=== PATIENT | male | born 1930 | race Caucasian/White ===

== ENCOUNTER → 2016-08-22 | Outpatient (CLI) | payer MEDICARE, OTHER ==
[2016-08-22 11:35] LABS: Potassium 4.2 mmol/L (3.5-5.1)
[2016-08-22 11:36] LABS: INR 2.5 (<1.1); Partial Thromboplastin Time 29.3 sec (22.0-30.0); Prothrombin Time 24.5 sec (9.0-12.0)
== END | disposition home or self-care (01) ==
LOC: LABPAT 10:45
PROVIDERS: ATTEND Orthopaedic Surgery
DX: Z01.812 Encounter for preprocedural laboratory examination (principal); M16.12 Unilateral primary osteoarthritis, left hip
CPT/HCPCS: 36415; 80051; 85610; 85730; 86850; 86900; 86901; 87070

== ENCOUNTER 2016-09-03 05:56 | Inpatient (IN) | payer MEDICARE, OTHER ==
[2016-08-31 14:13] VITALS: BMI 28.8
--- NOTE | 2016-09-02 14:14 | HP ---
DATE OF ADMISSION: 09/03/2016 Adalid Shah is an 85-year-old patient seen with progressive left hip pain consistent with symptomatic advanced osteoarthritis after having treatment options discussed, he elected to proceed with left total hip arthroplasty. Consent regarding the procedure was obtained. Medical clearance was provided by Dr. Fonseca, preoperative cardiac clearance was provided by Dr. Bell. His past medical history is cardiovascular disease, atrial fibrillation, hypertension. Past surgical history is right total knee arthroplasty, left total knee arthroplasty. Daily medications are: 1. Amiodarone. 2. Atorvastatin. 3. Carvedilol. 4. Potassium chloride. 5. Triamterene. 6. Hydrochlorothiazide. 7. Vitamins. Allergies are none. SOCIAL HISTORY: Patient denies current tobacco use. Physical evaluation of the left hip: His range of motion is severely limited with significant pain. There is diffuse weakness about the hip girdle, positive hip impingement sign. His distal neurovascular exam is intact. Radiographs of the left hip revealed severe osteoarthritis. IMPRESSION: Left hip osteoarthritis. PLAN: Direct anterior approach, left total hip arthroplasty.
[~2016-09-03 05:56] MED LIST: ACETAMINOPHEN TAB 500 MG TAB PO ONE; MELOXICAM 7.5 MG TAB PO ONE; TRANEXAMIC ACID 1,000 MG in SODIUM CHLORIDE 0.9% 100 ML IVPB ONE; ceFAZolin 2 GM in SODIUM CHLORIDE 0.9% 100 ML IVPB ONE
[2016-09-03] MEDS ORDERED: LIDOCAINE 1% 20 ML VIAL (10MG/ML) FOR IV START INTRADERMA ONE (06:54)
[2016-09-03] MEDS: LACTATED RINGERS 1,000 ML IV SCH ×2 (06:54→16:25)
[2016-09-03] MEDS ORDERED: DEXAMETHASONE SOD PHOSPHATE 10 MG/ML 1 ML VIAL IV ONE (07:03)
[2016-09-03] MEDS ORDERED: ONDANSETRON 4 MG/2 ML VIAL IVP ONE (07:03)
[2016-09-03] MEDS ORDERED: CARVEDILOL 12.5 MG TAB PO STA (07:09)
[2016-09-03 07:13] LABS: Basophils % (A) 0 %; CH 34.3; CHCM 33.9; Eosinophils # (A) 0.2 k/uL (0-0.7); Eosinophils % (A) 3 %; HCT 37.3 % (39.0-53.0); HDW 3.07; HGB 12.3 gm/dL (13.0-17.5); Luc # (Auto) 0.16; Luc % (Auto) 3; Lymphocytes # (A) 0.7 k/uL (1.0-4.8); Lymphocytes % (A) 12 %; MCH 33.7 pg (25.0-35.0); MCHC 33.1 g/dL (31.0-37.0); Macrocytosis Slight; Mean Platelet Volume 8.4; Monocytes # (A) 0.4 k/uL (0-1.0); Monocytes % (A) 6 %; Neutrophils # (A) 4.5 k/uL (1.3-7.7); Neutrophils % (A) 76 %; RBC 3.66 m/uL (4.30-5.90); RDW 14.8 % (11.5-15.5); WBC 5.9 k/uL (3.8-10.6); WBC (Perox) 6.09
[2016-09-03 07:24] LABS: INR 1.2 (<1.1); Prothrombin Time 12.2 sec (9.0-12.0)
[2016-09-03] MEDS ORDERED: ROPIVACAINE 246.25 MG, EPINEPHrine 0.5 MG, KETOROLAC 30 MG, cloNIDine HCL/PF 80 MCG, WA... MISCELLANE ONE ×5 (07:28)
[2016-09-03] MEDS ORDERED: PROPOFOL 10 MG/ML 20 ML VIAL IV ONE (07:35)
[2016-09-03] MEDS ORDERED: LIDOCAINE 1% INJ 10MG/ML (20 ML MDV) ONE (07:35)
[2016-09-03] MEDS ORDERED: fentaNYL (PF) 50 MCG/ML 2 ML AMP ONE (07:35)
[2016-09-03] MEDS ORDERED: MIDAZOLAM 2 MG/2 ML VIAL ONE (07:35)
[2016-09-03] MEDS ORDERED: NEOSTIGMINE 1 MG/ML 10 ML VIAL ONE (07:35)
[2016-09-03] MEDS ORDERED: SUCCINYLCHOLINE CHLORIDE 100 MG/5 ML SYR IV ONE (07:35)
[2016-09-03] MEDS ORDERED: HYDROmorphone (PF) 1 MG/ML ONE (07:35)
[2016-09-03] MEDS ORDERED: ROCURONIUM BROMIDE 10 MG/ML 10 ML VIAL IV ONE (07:35)
[2016-09-03] MEDS ORDERED: GLYCOPYRROLATE 0.2 MG/ML 2 ML VIAL ONE (07:35)
[2016-09-03] MEDS ORDERED: ceFAZolin 3,000 MG in SODIUM CHLORIDE 0.9% IRRIGATIO 3,000 ML IRRIGATION ONE (08:26)
[2016-09-03] MEDS ORDERED: LACTATED RINGERS 1,000 ML IV ONE ×2 (08:42→09:58)
--- NOTE | 2016-09-03 10:03 | XR ---
EXAMINATION TYPE: XR Hip Limited LT DATE OF EXAM: 09/03/2016 9:47 AM COMPARISON: NONE HISTORY: Postop TECHNIQUE: One view submitted. FINDINGS: There is post surgical change in near anatomic alignment. There is soft tissue edema and emphysema. IMPRESSION: 1. Postoperative change. Appears in near-anatomic alignment.
--- NOTE | 2016-09-03 10:05 | FL ---
EXAMINATION TYPE: FL guidance operating room DATE OF EXAM: 09/03/2016 9:47 AM HISTORY: Flouroscopy time 31 seconds of fluoroscopy provided. IMPRESSION: 1. Fluoroscopy time.
[2016-09-03] MEDS: HYDROmorphone 1 MG/ML 1 ML SYRINGE IVP PRN ×4 (10:25→10:45)
[2016-09-03] MEDS ORDERED: hydrOXYzine PAMOATE 25 MG CAP PO PRN (10:30)
[2016-09-03] MEDS ORDERED: ONDANSETRON 4 MG/2 ML VIAL IVP PRN (10:30)
[2016-09-03] MEDS ORDERED: HYDROcodone/APAP 7.5-325MG 1 EACH TAB PO PRN (10:30)
[2016-09-03] MEDS ORDERED: NALOXONE 0.4 MG/ML 1 ML VIAL IV PRN (10:30)
[2016-09-03] MEDS ORDERED: HYDROmorphone 1 MG/ML 1 ML SYRINGE IVP PRN ×3 (10:30)
--- NOTE | 2016-09-03 10:30 | P.OP ---
Date of Procedure: 09/03/16 Preoperative Diagnosis: Left hip osteoarthritis Postoperative Diagnosis: Left hip osteoarthritis Procedure(s) Performed: Direct anterior left total hip arthroplasty Implants: 1. Depuy Corail KA size 14 standard collar cementless femoral stem 2. Depuy pinnacle acetabular shell 64 mm 3. Depuy pinnacle polyethylene acetabular liner neutral 36 mm ID-64 mm OD 4. Depuy metal femoral head 36 mm +1.5 Anesthesia: GETA, local Surgeon: Geraldo Bradley Estimated Blood Loss (ml): 400 Pathology: other (Femoral head) Condition: stable Disposition: PACU Indications for Procedure: 85-year-old patient seen with symptomatic left hip osteoarthritis. After having treatment options discussed, he elected to proceed left total hip arthroplasty. Operative Findings: See description of procedure Description of Procedure: The patient was taken to the operative suite. Patient underwent a general anesthetic by the department of anesthesia. Patient was then transferred to the [place] table. Patient was given preoperative IV antibiotics and TXA. Both lower extremities were placed in standard leg spars. The hip was then prepped and draped in the normal sterile orthopedic fashion. A standard anterior incision was made beginning 3 cm lateral and 1 cm distal to the ASIS extending 10 cm. Dissection was then carried down through the subcutaneous soft tissues down to the fascia overlying the tensor fascia reji. An incision was now made through the fascia. Careful dissection was taken down exposing the tensor fascia reji muscle. A Cobra retractor was now placed along the medial femoral neck and a second one along the lateral femoral neck. The venous circumflex vessels were now identified, cauterized and clipped. We identified the anterior hip capsule. An incision was made through the hip capsule along the lateral border. Tag sutures were then placed along the anterior capsule and lateral capsule. We then performed a capsulotomy. Retractors were now placed around the femoral neck itself. A Cobra retractor was now placed along the anterior acetabulum. Good exposure was now noted of the femoral head/neck complex. Residual labrum was debrided out. We placed the extremity into 3 turns of fine traction. We were then able to introduce a skid in between the femoral head and acetabulum. A placed a awl into the femoral head. We took 2 turns of traction off the extremity. Rotation was now released. The femoral head was then dislocated without difficulty. Additional releasing was performed of the capsule. The head was then reduced. All traction was released. A femoral neck cut was now made with a sagittal saw. It was completed with an osteotome at the lateral neck area. The femoral head was now removed without difficulty. The extremity was now rotated to 60 of external rotation. It was locked in position. Residual labrum was now debrided out. Serial reaming was performed of the acetabulum. Once we reached the appropriate size and a trial was position and fit nicely. The appropriate size was now chosen opened and made available. The wound was irrigated with pulse lavage mechanical irrigation. It was introduced into the acetabulum without difficulty. The C-arm/fluoroscopy was now brought into the operative field. We made sure we had a true AP pelvic view. We now under direct C-arm/ fluoroscopy introduced into the acetabular component with appropriate version and inclination. It was well seated and stable. The C-arm was pulled back. An appropriate liner was introduced and clicked into position. It was felt to be stable. At this point retractors were removed. The extremity was now placed into 120 external rotation with no traction. The leg was now dropped to the ground and adducted. Appropriate retractors were now positioned along the proximal femur. We also placed our femoral look into position. Additional capsular releasing was performed to gain access to the proximal femur. We now used a box osteotome. A canal finder was now utilized. Serial broaching was now performed until we reached the appropriate size with good overall rotational stability. Appropriate calcar planing was performed. A trial head/ neck was placed into position. The hip was now reduced. The C-arm/fluoroscopy was brought back into the operative field. A spot film was obtained of the nonoperative hip. A spot film was obtained of the trial components. Overlays were performed, we noted good overall alignment and positioning for determining leg length. The C-arm/fluoroscopy was pulled back. Retractors were repositioned and the hip was dislocated. The leg was again taken down to the ground and adducted. Appropriate retractors were repositioned as well as the femoral hook. All trial components were removed. The femoral implant was opened along with the femoral head. The wound was irrigated with pulse lavage mechanical irrigation. The deep soft tissues were infiltrated with local analgesic. The femoral implant was introduced with good purchase and fixation noted. The femoral head was introduced with good positioning and fixation noted. Retractors were now removed. The hip was now reduced. There appeared be good positioning of the hip. C-arm was brought in confirming positioning of the components and Spot films were obtained to document this. A second gram of TXA was given. Bipolar cautery had been utilized intermittently through the procedure for hemostasis. The wound was irrigated copiously with pulse lavage mechanical irrigation. The fascia was repaired with Vicryl suture. The subcutaneous soft tissues were repaired in layers with Vicryl suture. The skin was approximated with pernio/Dermabond. Sterile dressings were applied. Patient was then awakened, transferred to a bed and taken to recovery in stable condition.
[2016-09-03] MEDS: MEPERIDINE 50 MG/ML SYRINGE IVP ONE ×2 (11:05→11:20)
[2016-09-03] MEDS: ceFAZolin 2 GM in SODIUM CHLORIDE 0.9% 100 ML IVPB SCH (17:41)
[2016-09-03] MEDS: SODIUM CHLORIDE 0.9% 1,000 ML IV SCH (17:43)
[2016-09-03] MEDS: traMADol 50 MG TAB PO SCH (17:58)
[2016-09-03] MEDS ORDERED: WARFARIN 7.5 MG TAB PO ONE (18:00)
[2016-09-03] MEDS: SENNOSIDES-DOCUSATE SODIUM 1 EACH TAB PO SCH (20:59)
[2016-09-04] MEDS: traMADol 50 MG TAB PO SCH ×5 (00:30→21:01)
[2016-09-04] MEDS: ceFAZolin 2 GM in SODIUM CHLORIDE 0.9% 100 ML IVPB SCH (00:30)
[2016-09-04] MEDS: SODIUM CHLORIDE 0.9% 1,000 ML IV SCH ×2 (05:20→23:22)
[2016-09-04 07:13] LABS: Basophils % (A) 0 %; CH 34.4; CHCM 33.5; Eosinophils % (A) 0 %; HCT 31.6 % (39.0-53.0); HDW 2.99; HGB 10.3 gm/dL (13.0-17.5); Luc # (Auto) 0.14; Luc % (Auto) 2; Lymphocytes # (A) 0.4 k/uL (1.0-4.8); Lymphocytes % (A) 5 %; MCH 33.8 pg (25.0-35.0); MCHC 32.7 g/dL (31.0-37.0); MCV 103.5 fL (80.0-100.0); Macrocytosis Moderate; Mean Platelet Volume 8.6; Monocytes # (A) 0.5 k/uL (0-1.0); Monocytes % (A) 6 %; Neutrophils # (A) 7.3 k/uL (1.3-7.7); Neutrophils % (A) 88 %; RBC 3.06 m/uL (4.30-5.90); RDW 14.9 % (11.5-15.5); WBC 8.4 k/uL (3.8-10.6); WBC (Perox) 9.06
[2016-09-04 07:24] LABS: INR 1.2 (<1.1); Prothrombin Time 12.1 sec (9.0-12.0)
[2016-09-04 07:32] LABS: Anion Gap 7 mmol/L; Blood Urea Nitrogen 23 mg/dL (9-20); Calcium 8.9 mg/dL (8.4-10.2); Carbon Dioxide 26 mmol/L (22-30); Chloride 107 mmol/L (98-107); Glucose 132 mg/dL (74-99); Non-African American GFR(MDRD) >60 (>60 ml/min/1.73 sqM); Potassium 4.6 mmol/L (3.5-5.1); Sodium 140 mmol/L (137-145)
[2016-09-04] MEDS: ASPIRIN 81 MG CHEW PO SCH (09:02)
[2016-09-04] MEDS: ATORVASTATIN 40 MG TAB PO SCH (09:02)
[2016-09-04] MEDS: AMIODARONE 200 MG TAB PO SCH (09:02)
[2016-09-04] MEDS: CARVEDILOL 12.5 MG TAB PO SCH (09:02)
[2016-09-04] MEDS: ENOXAPARIN 40 MG/0.4 ML SYRINGE SQ SCH (09:02)
[2016-09-04] MEDS: CALCIUM CARB-VIT D 500MG-200UN 1 EACH TAB PO SCH (09:02)
[2016-09-04] MEDS: ASCORBIC ACID 500 MG TAB PO SCH (09:02)
[2016-09-04] MEDS: LORATADINE 10 MG TAB PO SCH (09:03)
[2016-09-04] MEDS: TRIAMTERENE-HCTZ 37.5-25MG 1 EACH CAP PO SCH (09:03)
[2016-09-04] MEDS: FUROSEMIDE 20 MG TAB PO SCH (09:03)
[2016-09-04] MEDS: FAMOTIDINE 20 MG TAB PO SCH (09:03)
[2016-09-04] MEDS: POTASSIUM CHLORIDE ER 10 MEQ TAB.ER.PRT PO SCH (09:03)
[2016-09-04] MEDS: MULTIVITAMINS, THERA 1 EACH TAB PO SCH (09:03)
[2016-09-04] MEDS: HYDROcodone/APAP 7.5-325MG 1 EACH TAB PO PRN ×2 (09:10→23:22)
--- NOTE | 2016-09-04 12:34 | P.PN ---
Progress Note - Text Patient seen lying in bed comfortably. Patient does report some left thigh discomfort. Incision stable. Logrolling hip with mild discomfort. Distal neurovascular exam intact. Negative Ryan, negative Gudelians Impression: Status post direct anterior left total hip arthroplasty Plan: 1. Increase activity 2. Plan discharge tomorrow
--- NOTE | 2016-09-04 16:06 | P.CONS ---
History of Present Illness - Reason for Consult Consult date: 09/04/16 Medical management Requesting physician: Geraldo Bradley - Chief Complaint Severe left hip posterior arthritis - History of Present Illness This is a 85-year-old gentleman with past medical history noted below significant for severe left hip osteoarthritis who was admitted to the hospital for elective total left hip arthroplasty. Patient is postoperative day #1. He tolerated the procedure well. Estimated blood loss approximately 400 him in. He was up in the chair today when I saw him. His pain is relatively well- controlled but he is complaining of a lot of muscle spasm involving his left thigh. He is using an ice pack. He does not have any specific complaints otherwise. I was asked to see him for medical management. Review of Systems Review of system: 14 points review of systems were obtained and were negative except to what were mentioned in the HPI. Past Medical History Past Medical History: Atrial Fibrillation, Heart Failure, Hyperlipidemia, Hypertension, Osteoarthritis (OA) Additional Past Medical History / Comment(s): PT STATES "ALITTLE SWELLING" IN LOWER EXTREMITIES. , ENVIRONMENTAL ALLERGIES., STATES BRUISES EASILY FROM WARFARIN., PT STATES HE STOPPED ALL HIS MEDICATIONS ON Saturday08/27/16 FOR HIS SURGERY AND HE CONTINUED HIS VITAMIN SUPPLEMENTS., THOUGHT HE WAS SUPPOSED TO STOP HIS MEDICATIONS- INSTRUCTED PT TO NOTIFY DR SAYED THAT HE HAS NOT TAKEN HIS MEDS SINCE SATURDAY. , TOLD PT THAT HE NEEDS TO STOP HIS VITAMIN SUPPLEMENTS AND CONTINUE PRESCRIBED MEDICATIONS BUT TO INFORM HIS DR. , ALSO TO CONTINUE TO HOLD ASPIRIN AND WARFARIN IF OK WITH HIS DR. -PT STATES HE HAS HIS PHONE # AND WILL CALL., PT DID NOT KNOW FREQUENCY OF HIS MEDS-STATES SOME ARE TWICE A DAY - INSTRUCTED TO BRING UPDATED MED LIST OR HIS BOTTLES WITH HIM ON THE MORNING OF SURGERY. History of Any Multi-Drug Resistant Organisms: None Reported Past Surgical History: AICD, Joint Replacement Additional Past Surgical History / Comment(s): NOSE SURGERY (CHILD), CARLOS TOTAL KNEES. , 04/24/2013 TRIPLE CHAMBER BI-V ICD (INFORMATION RECEIVED FROM [facility] ( NOW BLAKE). Past Anesthesia/Blood Transfusion Reactions: No Reported Reaction Type of Cardiac Device: AICD Device Placement Date:: 04/24/2013 Past Psychological History: No Psychological Hx Reported Smoking Status: Former smoker Past Alcohol Use History: Occasional Additional Past Alcohol Use History / Comment(s): SMOKED [id number] WHILE IN THE SERVICE. DRINKS 1 BEER PER WEEK. Past Drug Use History: None Reported - Past Family History Brother(s) Family Medical History: Cancer Medications and Allergies Home Medications Medication Instructions Recorded Confirmed Type Amiodarone [Cordarone] 200 mg PO DAILY 08/31/16 09/03/16 History Ascorbic Acid [Vitamin C] 500 mg PO DAILY 08/31/16 09/03/16 History Aspirin [Adult Low Dose Aspirin EC] 81 mg PO DAILY 08/31/16 09/03/16 History Atorvastatin [Lipitor] 40 mg PO DAILY 08/31/16 09/03/16 History Calcium With Vitamin D 1 tab PO DAILY 08/31/16 09/03/16 History Carvedilol [Coreg] 12.5 mg PO DAILY 08/31/16 09/03/16 History Cetirizine HCl [Zyrtec] 10 mg PO DAILY 08/31/16 09/03/16 History Furosemide [Lasix] 20 mg PO DAILY 08/31/16 09/03/16 History Garlic 1 tab PO DAILY 08/31/16 09/03/16 History Metolazone [Zaroxolyn] 5 mg PO DAILY 08/31/16 09/03/16 History Naproxen Sodium [Aleve] 220 mg PO BID 08/31/16 09/03/16 History [place]-3 Fatty Acids/Fish Oil [Fish 1 cap PO DAILY 08/31/16 09/03/16 History Oil 1,000 mg Softgel] Potassium Chloride [K-Tab ER] 10 meq PO DAILY 08/31/16 09/03/16 History Triamterene-Hctz 37.5-25Mg 1 cap PO DAILY 08/31/16 09/03/16 History [Dyazide 37.5-25 Capsule] Vit C/E/Zn/Coppr/Lutein/Zeaxan 1 cap PO DAILY 08/31/16 09/03/16 History [Preservision Areds 2 Softgel] Vitamin D (Unknown Dose) 1 tab PO DAILY 08/31/16 09/03/16 History Warfarin [Coumadin] 2.5 mg PO TUFR 08/31/16 09/03/16 History Warfarin [Coumadin] 5 mg PO SUMOWETHSA 08/31/16 09/03/16 History Allergies Allergy/AdvReac Type Severity Reaction Status Date / Time No Known Allergies Allergy Verified 08/31/16 12:44 Physical Exam Vitals: Vital Signs Temp Pulse Pulse Pulse Resp BP BP 09/04/16 15:00 98.0 F 70 16 105/58 09/04/16 07:00 97.7 F 73 16 123/59 09/04/16 02:12 97.2 F L 73 19 99/56 09/03/16 20:58 97.3 F L 71 17 97/56 09/03/16 16:20 96.8 F L 70 16 118/96 Pulse Ox 09/04/16 15:00 98 09/04/16 07:00 09/04/16 02:12 100 09/03/16 20:58 99 09/03/16 16:20 100 Intake and Output 09/04/16 09/04/16 09/04/16 06:59 14:59 22:59 Intake Total 325 354 Output Total 650 Balance -325 354 Intake: IV 325 Sodium Chloride 0.9% 1, 325 000 ml @ 50 mls/hr IV . Q20H [facility] Rx#:[id number] Oral 354 Output: Urine 650 Uretheral (Casey) 650 Other: Voiding Method Indwelling Catheter # Voids 1 General: The patient is awake and alert, in no distress, and does not appear acutely ill. Eye: extra-ocular movements are intact; there is normal conjunctiva bilaterally. . Neck: The neck is supple, there is no tenderness or JVD. Cardiovascular: Normal S1-S2, no S3-S4, no murmurs. Respiratory: Lungs clear to auscultation bilaterally with no wheezes rhonchi or rales. Gastrointestinal: Abdomen is soft, nontender, nondistended, with no organomegaly. . Musculoskeletal: Normal ROM, no tenderness, There is no pedal edema. Neurological: There are no obvious motor or sensory deficits. Speech is normal. Skin: Skin is warm and dry and no rashes or lesions are noted. Results CBC & Chem 7: 09/04/16 06:38 09/04/16 06:38 Labs: Abnormal Lab Results - Last 24 Hours (Table) 09/04/16 09/04/16 09/04/16 Range/Units 06:38 06:38 06:38 RBC 3.06 L (4.30-5.90) m/uL Hgb 10.3 L (13.0-17.5) gm/dL Hct 31.6 L (39.0-53.0) % MCV 103.5 H (80.0-100.0) fL Plt Count 110 L (150-450) k/uL Lymphocytes # 0.4 L (1.0-4.8) k/uL PT 12.1 H (9.0-12.0) sec BUN 23 H (9-20) mg/dL Glucose 132 H (74-99) mg/dL Assessment and Plan Plan: 1. Postoperative day #1 status post total left hip arthroplasty: Continue postoperative care 2. DVT prophylaxis maintained on Coumadin chronically for underlying A. fib. Continue Lovenox for now until INR above 2 3. Acute blood loss anemia with EBL 400 mL. We will monitor CBC daily 4. Paroxysmal atrial fibrillation 5. Essential hypertension: Blood pressure within the acceptable range 6. Mixed hyperlipidemia 7. Physical debility: PT/OT evaluation Today, I reviewed her medication list and lab work results. Continue current regimen. Thank you very much for the consultation. I will continue to follow up on the patient closely.
[2016-09-04] MEDS ORDERED: WARFARIN 5 MG TAB PO ONE (18:00)
[2016-09-04] MEDS: SENNOSIDES-DOCUSATE SODIUM 1 EACH TAB PO SCH (21:00)
[2016-09-05 07:41] LABS: INR 1.3 (<1.1); Prothrombin Time 12.9 sec (9.0-12.0)
[2016-09-05] MEDS: FAMOTIDINE 20 MG TAB PO SCH (08:16)
[2016-09-05] MEDS: ENOXAPARIN 40 MG/0.4 ML SYRINGE SQ SCH (08:16)
[2016-09-05] MEDS: TRIAMTERENE-HCTZ 37.5-25MG 1 EACH CAP PO SCH (08:16)
[2016-09-05] MEDS: ATORVASTATIN 40 MG TAB PO SCH (08:16)
[2016-09-05] MEDS: LORATADINE 10 MG TAB PO SCH (08:16)
[2016-09-05] MEDS: POTASSIUM CHLORIDE ER 10 MEQ TAB.ER.PRT PO SCH (08:16)
[2016-09-05] MEDS: ASCORBIC ACID 500 MG TAB PO SCH (08:17)
[2016-09-05] MEDS: AMIODARONE 200 MG TAB PO SCH (08:17)
[2016-09-05] MEDS: CARVEDILOL 12.5 MG TAB PO SCH (08:17)
[2016-09-05] MEDS: MULTIVITAMINS, THERA 1 EACH TAB PO SCH (08:17)
[2016-09-05] MEDS: ASPIRIN 81 MG CHEW PO SCH (08:17)
[2016-09-05] MEDS: FUROSEMIDE 20 MG TAB PO SCH (08:17)
[2016-09-05] MEDS: CALCIUM CARB-VIT D 500MG-200UN 1 EACH TAB PO SCH (08:17)
[2016-09-05] MEDS: HYDROcodone/APAP 7.5-325MG 1 EACH TAB PO PRN (08:24)
[2016-09-05] MEDS: traMADol 50 MG TAB PO SCH ×4 (10:16→21:03)
--- NOTE | 2016-09-05 11:23 | P.DS ---
Providers Date of admission: 09/03/16 05:56 09/03/16 Expected date of discharge: 09/06/16 Attending physician: Geraldo Bradley Consults: 09/03/16 10:30 Consult Physician Routine Consulting Provider: Kevin Tracy Consult Reason/Comments: Medical management Do you want consulting provider notified?: Yes Primary care physician: Stated None Hospital Course: Patient underwent direct anterior total hip arthroplasty without difficulty. Over the ensuing days he did have a difficult time with some ambulation and a decision was made to transfer to extended care facility for additional rehabilitation Procedures: Direct anterior right total hip arthroplasty Patient Condition at Discharge: Good Plan - Discharge Summary New Discharge Prescriptions: HYDROcodone/APAP 7.5-325MG [[place] 7.5-325] 1 - 2 each PO Q6HR PRN #60 tab PRN Reason: Pain Discharge Medication List Amiodarone [Cordarone] 200 mg PO DAILY 08/31/16 [History] Ascorbic Acid [Vitamin C] 500 mg PO DAILY 08/31/16 [History] Aspirin [Adult Low Dose Aspirin EC] 81 mg PO DAILY 08/31/16 [History] Atorvastatin [Lipitor] 40 mg PO DAILY 08/31/16 [History] Calcium With Vitamin D 1 tab PO DAILY 08/31/16 [History] Carvedilol [Coreg] 12.5 mg PO DAILY 08/31/16 [History] Cetirizine HCl [Zyrtec] 10 mg PO DAILY 08/31/16 [History] Furosemide [Lasix] 20 mg PO DAILY 08/31/16 [History] Garlic 1 tab PO DAILY 08/31/16 [History] Metolazone [Zaroxolyn] 5 mg PO DAILY 08/31/16 [History] Naproxen Sodium [Aleve] 220 mg PO BID 08/31/16 [History] [place]-3 Fatty Acids/Fish Oil [Fish Oil 1,000 mg Softgel] 1 cap PO DAILY [History] Potassium Chloride [K-Tab ER] 10 meq PO DAILY 08/31/16 [History] Triamterene-Hctz 37.5-25Mg [Dyazide 37.5-25 Capsule] 1 cap PO DAILY 08/31/16 [ History] Vit C/E/Zn/Coppr/Lutein/Zeaxan [Preservision Areds 2 Softgel] 1 cap PO DAILY 04/09 [History] Vitamin D (Unknown Dose) 1 tab PO DAILY 08/31/16 [History] Warfarin [Coumadin] 2.5 mg PO TUFR 08/31/16 [History] Warfarin [Coumadin] 5 mg PO SUMOWETHSA 08/31/16 [History] HYDROcodone/APAP 7.5-325MG [[place] 7.5-325] 1 - 2 each PO Q6HR PRN #60 tab [Rx] Follow up Appointment(s)/Referral(s): Moises Avila PAC [[facility]] - 2 Weeks Patient Instructions/Handouts: Total Hip Replacement (DC) Discharge Disposition: TRANSFER TO SNF/ECF
[2016-09-05 14:05] VITALS: RESP 16
--- NOTE | 2016-09-05 16:04 | P.PN ---
Subjective Patient is doing well today. He is up in the chair. He is still having uncontrolled pain mostly when he get up and walk around with therapy. Objective - Vital Signs Vital signs: Vital Signs Temp 97.6 F 09/05/16 14:04 Pulse 73 09/05/16 14:04 Resp 16 09/05/16 14:04 BP 102/63 09/05/16 14:04 Pulse Ox 98 09/05/16 14:04 Intake & Output 09/04/16 09/05/16 09/05/16 18:59 06:59 18:59 Intake Total 354 480 600 Output Total 1100 1725 Balance -746 -1245 600 Intake: Oral 354 480 600 Output: Urine 1100 1725 Uretheral (Casey) 1725 Other: Voiding Method Indwelling Catheter Indwelling Catheter # Voids 1 - Exam General: The patient is awake and alert, in no distress Eye: there is normal conjunctiva bilaterally. Neck: The neck is supple, there is no JVD. Cardiovascular: Normal S1-S2, no S3-S4, no murmurs. Respiratory: Lungs clear to auscultation bilaterally Gastrointestinal: Abdomen is soft, nontender Musculoskeletal: There is no pedal edema. Neurological:. Speech is normal. Skin: Skin is warm and dry - Labs CBC & Chem 7: 09/04/16 06:38 09/04/16 06:38 Labs: Abnormal Lab Results - Last 24 Hours (Table) 09/05/16 Range/Units 07:03 PT 12.9 H (9.0-12.0) sec Assessment and Plan Plan: 1. Postoperative day #2 status post total left hip arthroplasty: Continue postoperative care 2. DVT prophylaxis maintained on Coumadin chronically for underlying A. fib. Continue Lovenox for now until INR above 2 3. Acute blood loss anemia with EBL 400 mL. We will monitor CBC daily 4. Paroxysmal atrial fibrillation 5. Essential hypertension: Blood pressure within the acceptable range 6. Mixed hyperlipidemia 7. Physical debility: PT/OT evaluation. Plan to discharge to rehab tomorrow Today, I reviewed her medication list and lab work results. Continue current regimen. Thank you very much for the consultation. I will continue to follow up on the patient closely.
--- NOTE | 2016-09-05 17:30 | XR ---
EXAMINATION TYPE: XR chest 1V portable DATE OF EXAM: 09/05/2016 5:16 PM COMPARISON: NONE HISTORY: ECF placement required TECHNIQUE: Single AP portable upright frontal view of the chest is obtained. FINDINGS: Cardiac pacemaker noted. There is no focal air space opacity, pleural effusion, or pneumoth orax seen. The cardiac silhouette size is within normal limits. The osseous structures are intact. IMPRESSION: No acute process.
[2016-09-05] MEDS ORDERED: WARFARIN 5 MG TAB PO ONE (18:00)
[2016-09-05] MEDS: SENNOSIDES-DOCUSATE SODIUM 1 EACH TAB PO SCH (21:03)
[2016-09-06 08:21] VITALS: BP 119/70; PULSE 72; TEMP 97.2
[2016-09-06] MEDS: traMADol 50 MG TAB PO SCH ×2 (08:21→15:14)
[2016-09-06] MEDS: LORATADINE 10 MG TAB PO SCH (08:22)
[2016-09-06] MEDS: AMIODARONE 200 MG TAB PO SCH (08:22)
[2016-09-06] MEDS: ASCORBIC ACID 500 MG TAB PO SCH (08:22)
[2016-09-06] MEDS: TRIAMTERENE-HCTZ 37.5-25MG 1 EACH CAP PO SCH (08:22)
[2016-09-06] MEDS: CALCIUM CARB-VIT D 500MG-200UN 1 EACH TAB PO SCH (08:22)
[2016-09-06] MEDS: ENOXAPARIN 40 MG/0.4 ML SYRINGE SQ SCH (08:22)
[2016-09-06] MEDS: FAMOTIDINE 20 MG TAB PO SCH (08:22)
[2016-09-06] MEDS: ASPIRIN 81 MG CHEW PO SCH (08:22)
[2016-09-06] MEDS: CARVEDILOL 12.5 MG TAB PO SCH (08:22)
[2016-09-06] MEDS: ATORVASTATIN 40 MG TAB PO SCH (08:22)
[2016-09-06] MEDS: FUROSEMIDE 20 MG TAB PO SCH (08:22)
[2016-09-06] MEDS: MULTIVITAMINS, THERA 1 EACH TAB PO SCH (08:22)
[2016-09-06] MEDS: POTASSIUM CHLORIDE ER 10 MEQ TAB.ER.PRT PO SCH (08:23)
[2016-09-06 08:47] LABS: Basophils % (A) 1 %; CH 34.7; CHCM 33.2; Eosinophils # (A) 0.1 k/uL (0-0.7); Eosinophils % (A) 3 %; HCT 34.7 % (39.0-53.0); HDW 3.17; HGB 11.3 gm/dL (13.0-17.5); Luc # (Auto) 0.15; Luc % (Auto) 3; Lymphocytes # (A) 0.7 k/uL (1.0-4.8); Lymphocytes % (A) 14 %; MCH 34.4 pg (25.0-35.0); MCHC 32.5 g/dL (31.0-37.0); MCV 105.7 fL (80.0-100.0); Macrocytosis Moderate; Mean Platelet Volume 8.6; Monocytes # (A) 0.3 k/uL (0-1.0); Monocytes % (A) 5 %; Neutrophils % (A) 75 %; RBC 3.28 m/uL (4.30-5.90); RDW 15.4 % (11.5-15.5); WBC 5.3 k/uL (3.8-10.6); WBC (Perox) 5.69
[2016-09-06 09:03] LABS: INR 1.3 (<1.1)
[2016-09-06] MEDS ORDERED: LACTULOSE 20 GM/30 ML CUP PO ONE (10:07)
--- NOTE | 2016-09-06 12:06 | P.PN ---
Subjective patient's pain is controlled. He sitting at bedside chair. Denies any chest pain shortness breath. Denies any nausea or vomiting. He is complaining of constipation. Last bowel movement 4 days ago. Denies any burning with urination Objective - Vital Signs Vital signs: Vital Signs Temp 97.2 F L 09/06/16 07:00 Pulse 72 09/06/16 07:00 Resp 16 09/06/16 07:00 BP 119/70 09/06/16 07:00 Pulse Ox 97 09/06/16 07:00 Intake & Output 09/05/16 09/06/16 09/06/16 18:59 06:59 18:59 Intake Total 780 720 480 Output Total 1700 Balance 780 -980 480 Intake: Oral 780 720 480 Output: Urine 1700 Other: Voiding Method Indwelling Catheter # Voids 1 - Exam Head normocephalic Neck supple Lungs clear to auscultation bilaterally no wheezing or crackles Heart regular rate and rhythm S1-S2, no rub or gallop Abdomen is soft nontender nondistended positive bowel sounds no hepatosplenomegaly Extremities +1 edema bilateral lower extremities Neuro alert and orientated to 3 - Labs CBC & Chem 7: 09/06/16 08:00 09/04/16 06:38 Labs: Abnormal Lab Results - Last 24 Hours (Table) 09/06/16 09/06/16 Range/Units 07:58 08:00 RBC 3.28 L (4.30-5.90) m/uL Hgb 11.3 L (13.0-17.5) gm/dL Hct 34.7 L (39.0-53.0) % MCV 105.7 H (80.0-100.0) fL Plt Count 136 L (150-450) k/uL Lymphocytes # 0.7 L (1.0-4.8) k/uL PT 13.0 H (9.0-12.0) sec Assessment and Plan Plan: 1. Postoperative day #3 status post total left hip arthroplasty: Continue postoperative care 2. DVT prophylaxis maintained on Coumadin chronically for underlying A. fib. Continue Lovenox for now until INR above 2 3. Acute blood loss anemia with EBL 400 mL. We will monitor CBC daily. Hemoglobin stable at 11.3 4. Paroxysmal atrial fibrillation 5. Essential hypertension: Blood pressure within the acceptable range 6. Mixed hyperlipidemia 7. Physical debility: PT/OT evaluation. 8. Constipation continue stool softener we'll give 1 dose of lactulose patient is medically stable for discharge to ECF. patient will continue Lovenox for another 3 days. Check PT/INR on Saturday. His home Coumadin dose was resumed.
[2016-09-06] MEDS ORDERED: NA PHOS,M-B/NA PHOS,DI-BA 133 ML ENEMA RECTAL STA (13:50)
[2016-09-06] MEDS ORDERED: WARFARIN 5 MG TAB PO ONE (18:00)
== END 2016-09-06 15:29 | DRG 470 ==
LOC: 2ORMAIN 05:56 → 3SUR 15:14
PROVIDERS: ADMIT Orthopaedic Surgery; ATTEND Orthopaedic Surgery
PROC: 0SRB02A Replacement of Left Hip Joint with Metal on Polyethylene Synthetic Substitute, Uncemented, Open Approach (ICD-10-PCS; principal; 2016-09-03 07:30)
DX: M16.12 Unilateral primary osteoarthritis, left hip (principal); I11.0 Hypertensive heart disease with heart failure; I48.91 Unspecified atrial fibrillation; I50.9 Heart failure, unspecified; E78.5 Hyperlipidemia, unspecified; I25.10 Atherosclerotic heart disease of native coronary artery without angina pectoris; K59.00 Constipation, unspecified; Z79.01 Long term (current) use of anticoagulants; Z79.82 Long term (current) use of aspirin; Z79.899 Other long term (current) drug therapy; Z87.891 Personal history of nicotine dependence
CPT/HCPCS: 71010; 73501; 80048; 85025; 85610; 86850; 86900; 86901; 88300